=== PATIENT | female | born 1995 | race American Indian/Alaskan Native ===

== ENCOUNTER 2021-09-05 15:08 | Emergency (ER) | payer SELFPAY ==
[2021-09-05] MEDS ORDERED: ONDANSETRON 4 MG/2 ML INJ IV ONE (15:47)
[2021-09-05] MEDS ORDERED: SODIUM CHLORIDE 0.9% 1000 ML 1,000 ML IV ONE ×2 (15:48→18:48)
[2021-09-05] MEDS ORDERED: LORazepam 2 MG/ML VIAL IV ONE (15:48)
--- NOTE | 2021-09-05 15:53 | Emergency Department Report ---
ED Chest Pain HPI - General Chief Complaint: Chest Pain Stated Complaint: CHEST PAIN/CHILLS/VOMITING ABD PAIN Time Seen by Provider: 09/05/21 15:36 Source: patient Mode of arrival: Ambulatory Limitations: No Limitations - History of Present Illness Initial Comments: 26-year-old female presents with chest pain that has been going on for the last 3 days associated with nausea and vomiting progressively getting worse. Patient reported that she has not been able to tolerate any p.o. fluid or meal. She reported that whenever she tried to eat or hydrate herself she vomited the food or drink. Patient reported that she had a baby 3 months ago and had chest pain and acid reflux that needed admission at that point. Patient denies any fever or chills. No recent cold symptoms reported. Patient also denies any urinary frequency or urgency but was treated for urinary tract infection about 4 months ago. No other modifying or positive factors reported. Severity scale (0 -10): 10 - Related Data Previous Rx's Medication Instructions Recorded Last Taken Type Ondansetron (Nf) [Zofran TAB] 8 mg PO Q8HR PRN 5 Days #14 tablet 09/05/21 Unknown Rx cephALEXin [Keflex] 500 mg PO Q12HR 10 Days #20 cap 09/05/21 Unknown Rx Allergies Allergy/AdvReac Type Severity Reaction Status Date / Time No Known Allergies Allergy Unverified 04/14/14 09:02 Heart Score - HEART Score History: Slightly suspicious EKG: Normal Age: < 45 Risk factors: No known risk factors Troponin: < normal limit HEART Score: 0 - EKG Read Time Time EKG Completed: 03:35 EKG Read Time: 03:35 - Critical Actions Critical Actions: 0-3 pts:0.9-1.7%risk of adverse cardiac event.Candidate for discharge ED Review of Systems ROS: Stated complaint: CHEST PAIN/CHILLS/VOMITING ABD PAIN Other details as noted in HPI Comment: All other systems reviewed and negative Cardiovascular: chest pain Gastrointestinal: nausea, vomiting. denies: abdominal pain, diarrhea Genitourinary: denies: urgency, dysuria, frequency ED Past Medical Hx - Social History Smoking Status: Never Smoker - Medications Home Medications: Home Medications Medication Instructions Recorded Confirmed Last Taken Type Ondansetron (Nf) [Zofran TAB] 8 mg PO Q8HR PRN 5 Days #14 tablet 09/05/21 Unknown Rx cephALEXin [Keflex] 500 mg PO Q12HR 10 Days #20 cap 09/05/21 Unknown Rx ED Physical Exam - General Limitations: No Limitations General appearance: alert, in no apparent distress - Head Head exam: Present: normal inspection - Eye Eye exam: Present: normal appearance - ENT ENT exam: Present: normal exam, normal orophraynx, mucous membranes moist - Neck Neck exam: Present: normal inspection, full ROM. Absent: tenderness - Respiratory Respiratory exam: Present: normal lung sounds bilaterally, chest wall tenderness (Anterior chest wall tenderness to palpation). Absent: respiratory distress, wheezes - Cardiovascular Cardiovascular Exam: Present: regular rate, tachycardia, normal heart sounds - GI/Abdominal GI/Abdominal exam: Present: soft, normal bowel sounds. Absent: tenderness, guarding, rebound - Extremities Exam Extremities exam: Present: normal inspection, full ROM, normal capillary refill. Absent: tenderness, pedal edema - Back Exam Back exam: Present: normal inspection. Absent: CVA tenderness (R), CVA tenderness (L) - Neurological Exam Neurological exam: Present: alert - Psychiatric Psychiatric exam: Present: normal affect, normal mood - Skin Skin exam: Present: warm, normal color. Absent: rash ED Course Vital Signs 09/05/21 09/05/21 09/05/21 15:27 15:42 15:45 Temperature 100.7 F H Pulse Rate 135 H Respiratory 20 Rate Blood Pressure Blood Pressure 117/69 [Right] O2 Sat by Pulse 96 94 100 Oximetry 09/05/21 09/05/21 09/05/21 15:50 16:00 16:16 Temperature Pulse Rate 118 H 116 H 117 H Respiratory 28 H 13 Rate Blood Pressure Blood Pressure [Right] O2 Sat by Pulse 98 81 L Oximetry 09/05/21 09/05/21 09/05/21 16:30 16:46 17:00 Temperature Pulse Rate 114 H 110 H 110 H Respiratory 27 H 30 H 30 H Rate Blood Pressure Blood Pressure [Right] O2 Sat by Pulse 97 94 77 L Oximetry 09/05/21 09/05/21 09/05/21 17:16 17:30 17:46 Temperature Pulse Rate 108 H 105 H 108 H Respiratory 27 H 28 H 25 H Rate Blood Pressure Blood Pressure [Right] O2 Sat by Pulse 95 97 94 Oximetry 09/05/21 09/05/21 09/05/21 18:00 18:16 18:30 Temperature Pulse Rate 102 H 107 H 108 H Respiratory 24 30 H 30 H Rate Blood Pressure 120/70 122/74 Blood Pressure [Right] O2 Sat by Pulse 95 97 96 Oximetry 09/05/21 09/05/21 09/05/21 19:00 19:30 20:00 Temperature 103.1 F H Pulse Rate 114 H 129 H 118 H Respiratory 20 24 30 H Rate Blood Pressure 115/79 151/116 Blood Pressure 131/87 [Right] O2 Sat by Pulse 97 97 100 Oximetry 09/05/21 09/05/21 21:00 22:00 Temperature 99.1 F Pulse Rate 107 H 99 H Respiratory 25 H 27 H Rate Blood Pressure 106/56 105/59 Blood Pressure [Right] O2 Sat by Pulse 97 98 Oximetry - Reevaluation(s) Reevaluation #1: 09/05/21 15:54 Patient here with chest pain for 3 days associated with nausea and vomiting and noted with chest wall tenderness to palpation with sinus tachycardia on EKG--the symptoms is concerning for recent viral syndrome--versus reported nausea and vomiting with electrolyte and fluid loss--so we will go ahead and order routine labs including CBC, CMP, and urinalysis and hydrate patient with IV fluid normal saline 1 L bolus x1, Zofran 4 mg and aspirin for pain. We will also give Ativan to help anxiety. 09/05/21 15:58 Reevaluation #2: 09/05/21 17:14 Noted with mild hyponatremia and hypokalemia which is likely as a result of the nausea and vomiting--we will continue hydration with IV fluids Reevaluation #3: 09/05/21 17:45 Patient reports feeling a little bit better after IV hydration and something for nausea but noted with elevated white cell which likely could be reactive from extensive vomiting--no antibiotics is needed at this point we will just go ahead and treat symptomatically. Reevaluation #4: 09/05/21 18:51 Patient report feeling a little better after the initial IV hydration however she was noted with elevated white count and lots of large urinary leukocytes and lots of urine white cells so we will go ahead and treat for urinary tract infection by given Rocephin 1 g IV x1 and add additional 1 L of IV fluids normal saline. Patient also mentioned that she has been using lot of Azo o [id number] to help with the urinary symptoms. 09/05/21 18:52 09/05/21 22:07 Patient reports feeling a lot better after the second liter of IV fluids and antibiotics is completed ready to go home--we will discharge patient home on Keflex and Zofran for nausea with close follow-up with her primary doctor in the next 3 to 5 days. CHUCK score - Chuck Score Age > 65: (0) No Aspirin use within the Past 7 Days: (0) No 3 or more CAD Risk Factors: (0) No 2 or more Angina events in past 24 hrs: (0) No Known CAD with more than 50% Stenosis: (0) No Elevated Cardiac Markers: (0) No ST Deviation Greater than 0.5mm: (0) No CHUCK Score: 0 ED Medical Decision Making - Lab Data Result diagrams: 09/05/21 16:29 09/05/21 16:29 - Differential Diagnosis Anxiety, costochondritis, viral syndrome, heart attack Critical care attestation.: If time is entered above; I have spent that time in minutes in the direct care of this critically ill patient, excluding procedure time. ED Disposition Clinical Impression: Anxiety, Dehydration Chest pain Qualifiers: Chest pain type: intercostal pain Qualified Code(s): R07.82 - Intercostal pain Nausea and vomiting Qualifiers: Vomiting type: unspecified Qualified Code(s): R11.2 - Nausea with vomiting, unspecified Urinary tract infection Qualifiers: Urinary tract infection type: site unspecified Hematuria presence: without hematuria Qualified Code(s): N39.0 - Urinary tract infection, site not specified Disposition: 01 HOME / SELF CARE / HOMELESS Is pt being admited?: No Does the pt Need Aspirin: No Condition: Stable Instructions: Antibiotic Medicine, Adult, [id number], Nonspecific Chest Pain, Adult, Nausea and Vomiting, Adult, [id number], Urinary Tract Infection, Adult, Llvq-ri-Kcyv, Dehydration, Adult, [id number]-[id number] Additional Instructions: Increase your daily fluid to help your hydration Take and complete your antibiotics as prescribed to help your symptoms : Follow-up with your primary doctor in the next 3 to 5 days for progress Please do not hesitate to call or return to emergency room if your symptoms worsen Prescriptions: cephALEXin [Keflex] 500 mg PO Q12HR 10 Days #20 cap Ondansetron (Nf) [Zofran TAB] 8 mg PO Q8HR PRN 5 Days #14 tablet PRN Reason: Nausea Referrals: SALVATORE RIOS MD [Primary Care Provider] - 3-5 Days Time of Disposition: 23:06
[2021-09-05] MEDS ORDERED: ASPIRIN 81 MG TAB CHEW PO ONE (15:59)
[2021-09-05 16:07] LABS: HCG Qualitative,Urine Negative (Negative)
[2021-09-05 16:14] LABS: Bilirubin,Urine NEG (Negative); Blood,Urine SM (Negative); Color,Urine Amber (Yellow); Mucus,Urine 2+ /HPF
[2021-09-05 16:15] LABS: Protein,Urine >500 mg/dL (Negative); WBC,Urine > 182.0 /HPF (0.0-6.0)
--- NOTE | 2021-09-05 16:50 | XRay Report ---
CHEST 1 VIEW 09/05/2021 4:27 PM INDICATION / CLINICAL INFORMATION: chest pain. COMPARISON: None available. FINDINGS: SUPPORT DEVICES: None. HEART / MEDIASTINUM: No significant abnormality. LUNGS / PLEURA: No significant pulmonary or pleural abnormality. Round opacity at the right costophre jb angle favors nipple shadow. No pneumothorax. ADDITIONAL FINDINGS: No significant additional findings. IMPRESSION: 1. No acute findings. Signer Name: Miguelito Quick MD Signed: 09/05/2021 4:46 PM Workstation Name: [id number]
[2021-09-05 16:51] LABS: Hematocrit 35.6 % (30.3-42.9); Hemoglobin 11.5 gm/dl (10.1-14.3); Mean Corpuscular HGB Conc 32 % (30-34); Mean Corpuscular Volume 85 fl (79-97); Platelet Count 250 K/mm3 (140-440); Red Blood Count 4.19 M/mm3 (3.65-5.03); Red Cell Distribution Width 14.8 % (13.2-15.2)
[2021-09-05 17:01] LABS: INR 1.11 (0.87-1.13)
[2021-09-05 17:02] LABS: Partial Thromboplastin Time 38.4 Sec. (24.2-36.6)
[2021-09-05 17:11] LABS: Alanine Aminotransferase 14 units/L (7-56); Albumin 3.7 g/dL (3.9-5); BUN/Creatinine Ratio 24; Blood Urea Nitrogen 22 mg/dL (7-17); Calcium 8.7 mg/dL (8.4-10.2); Hemolysis Index 4
[2021-09-05 17:21] LABS: Band Neutrophils # (Manual) 0.4 K/mm3; Basophils % (Manual) 0 % (0.0-1.8); Eosinophils % (Manual) 0 % (0.0-4.3); Total Cells Counted 100
[2021-09-05 17:22] LABS: Anisocytosis 1+; Large Platelets Few; Platelet Estimate Consistent w Auto; Toxic Granulation 3+; Toxic Vacuolation 1+
[2021-09-05] MEDS ORDERED: cefTRIAXone/NS 1 GM/50 ML 1 GM/50 ML BAG IV ONE (18:49)
[2021-09-05] MEDS ORDERED: KETOROLAC 30 MG/1 ML INJ IV ONE (19:48)
[2021-09-05 22:59] VITALS: BP 105/59
--- NOTE | 2021-09-06 10:25 | Electrocardiograph Report ---
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
== END 2021-09-05 22:27 | disposition home or self-care (01) ==
LOC: ED 15:08
DX: N39.0 Urinary tract infection, site not specified (principal); R07.9 Chest pain, unspecified; F41.8 Other specified anxiety disorders; R11.2 Nausea with vomiting, unspecified
CPT/HCPCS: 36415; 71045; 80053; 81001; 81025; 83690; 83880; 84443; 85007; 85025; 85610; 85730; 93005; 96361; 96365; 96375; 99284; J0696; J1885; J2060; J2405; J7030; Q0162

== ENCOUNTER 2022-02-19 16:03 | Emergency (ER) | payer OTHER ==
[2022-02-19] MEDS ORDERED: ACETAMINOPHEN 500 MG TAB PO ONE (20:31)
[2022-02-19 20:42] LABS: Mean Corpuscular HGB Conc 31 % (30-34); Mean Corpuscular Volume 82 fl (79-97); Platelet Count 272 K/mm3 (140-440); Red Blood Count 4.78 M/mm3 (3.65-5.03); Red Cell Distribution Width 18.7 % (13.2-15.2)
[2022-02-19 21:03] LABS: Bilirubin,Urine NEG (Negative); Blood,Urine MOD (Negative); Color,Urine Amber (Yellow)
[2022-02-19 21:12] LABS: Mucus,Urine 3+ /HPF
[2022-02-19] MEDS ORDERED: ONDANSETRON 4 MG/2 ML INJ IV ONE (21:13)
[2022-02-19] MEDS ORDERED: KETOROLAC 30 MG/1 ML INJ IV ONE (21:13)
[2022-02-19] MEDS ORDERED: SODIUM CHLORIDE 0.9% 1000 ML 1,000 ML IV ONE ×2 (21:15→22:46)
[2022-02-19] MEDS ORDERED: cefTRIAXone/NS 1 GM/50 ML 1 GM/50 ML BAG IV ONE (21:18)
[2022-02-19 21:19] LABS: HCG Qualitative,Urine Negative (Negative)
[2022-02-19 21:24] LABS: WBC,Urine > 182.0 /HPF (0.0-6.0)
--- NOTE | 2022-02-19 21:24 | Emergency Department Report ---
ED Fever HPI - General Chief Complaint: Fever Stated Complaint: CHEST PAIN/FEVER/CHILLS - History of Present Illness Initial Comments: 26-year-old female with history of recurrent kidney infections presents complaining of fever, chills, chest pain, headache, lower abdominal pain, nausea and vomiting since yesterday. The lower abdominal pain is described as a sharp and severe. The pain radiates to bilateral flanks and lower back. Patient denies cough, congestion, shortness of breath, or any other symptoms. Denies abnormal vaginal discharge, nor concern for having an STI. Patient states that she has not been able to take any medication for the pain or fever as she has been throwing up. Patient reports similar in the past, but states that this is more severe. Patient has been diagnosed with urosepsis, once, while she was . Patient denies being now. No aggravating or alleviating factors. ED Review of Systems ROS: Stated complaint: CHEST PAIN/FEVER/CHILLS Other details as noted in HPI Comment: All other systems reviewed and negative Constitutional: chills, fever, malaise, weakness. denies: diaphoresis Eyes: denies: eye pain, eye discharge, vision change ENT: congestion. denies: ear pain, throat pain Respiratory: denies: cough, shortness of breath, wheezing Cardiovascular: chest pain. denies: palpitations Endocrine: no symptoms reported Gastrointestinal: abdominal pain, nausea, vomiting. denies: diarrhea Genitourinary: denies: urgency, dysuria, discharge Musculoskeletal: back pain. denies: joint swelling, arthralgia Skin: denies: rash, lesions Neurological: headache, weakness. denies: paresthesias Psychiatric: denies: anxiety, depression Hematological/Lymphatic: denies: easy bleeding, easy bruising ED Past Medical Hx - Past Medical History Previous Medical History?: Yes Additional medical history: Frequent UTI, Vaginal delivery x 1 - Surgical History Past Surgical History?: Yes Additional Surgical History: RT breast, x 1 - Social History Smoking Status: Never Smoker - Medications Home Medications: Home Medications Medication Instructions Recorded Confirmed Last Taken Type Ondansetron (Nf) [Zofran TAB] 8 mg PO Q8HR PRN 5 Days #14 tablet 09/05/21 Unknown Rx cephALEXin [Keflex] 500 mg PO Q12HR 10 Days #20 cap 09/05/21 Unknown Rx Cefpodoxime Proxetil 200 mg PO Q12H #20 02/20/22 Unknown Rx HYDROcodone/APAP 5-325 [[place] 1 each PO Q6HR PRN #10 tablet 02/20/22 Unknown Rx 5/325] Ibuprofen [Motrin] 400 mg PO Q8H PRN #28 tablet 02/20/22 Unknown Rx Ondansetron [Zofran Odt] 4 mg PO Q8HR PRN #6 tab.rapdis 02/20/22 Unknown Rx ED Physical Exam - General Limitations: No Limitations General appearance: alert, in no apparent distress - Head Head exam: Present: atraumatic, normocephalic - Eye Eye exam: Present: normal appearance, PERRL, EOMI - ENT ENT exam: Present: mucous membranes moist - Neck Neck exam: Present: normal inspection. Absent: tenderness, meningismus - Respiratory Respiratory exam: Present: normal lung sounds bilaterally. Absent: respiratory distress, wheezes, rales - Cardiovascular Cardiovascular Exam: Present: regular rate, normal rhythm, tachycardia, normal heart sounds. Absent: systolic murmur, diastolic murmur, rubs, gallop - GI/Abdominal GI/Abdominal exam: Present: soft, tenderness (Suprapubic), normal bowel sounds, other (Bilateral CVA tenderness). Absent: rebound, pulsatile mass - Extremities Exam Extremities exam: Present: normal inspection - Back Exam Back exam: Present: normal inspection, full ROM, CVA tenderness (R), CVA tenderness (L) - Neurological Exam Neurological exam: Present: alert, oriented X3, CN II-XII intact, normal gait - Psychiatric Psychiatric exam: Present: normal affect, normal mood - Skin Skin exam: Present: warm, dry, intact, normal color. Absent: rash ED Course Vital Signs 02/19/22 02/20/22 17:25 00:35 Temperature 102.6 F H 98.6 F Pulse Rate 139 H 92 H Respiratory 20 14 Rate Blood Pressure 141/72 111/63 [Right] O2 Sat by Pulse 99 96 Oximetry - Reevaluation(s) Reevaluation #1: 02/19/22 22:44 Patient reports resolution of nausea, and was able to tolerate p.o. Awaiting chemistry and CT abdomen pelvis. Reevaluation #2: 02/20/22 00:45 Patient has had resolution of her symptoms, and is requesting to be discharged home. Still awaiting lactic acid. If lactate is elevated, patient will be admitted. If it is normal, patient will be discharged home with antibiotics. ED Medical Decision Making - Lab Data Result diagrams: 02/19/22 18:37 02/19/22 22:18 - Radiology Data Radiology results: report reviewed Chest x-ray: IMPRESSION: 1. No acute abnormality of the chest. Signer Name: Bo Franklin MD ct abd/pelvis with contrast: IMPRESSION: 1. Acute right-sided pyelonephritis secondary to an ascending urinary tract infection and evidence for cystitis. Minimal right hydronephrosis without obstructing mass or stone. 2. Asymmetric right renal cortical scarring, likely secondary to more remote pyelonephritis. 3. Normal appendix. Signer Name: Richard Aquino MD - Medical Decision Making This is a 26-year-old female with a history of recurrent UTIs and kidney infections who presents to the emergency department with multiple complaints including fever since yesterday. Patient complains of chest pain, lower abdominal pain, and bilateral flank pain and vomiting. Vital signs are concerni ng for a fever of 102.6 and tachycardia of 139. Physical exam is remarkable for uncomfortable appearing patient with tachycardia and bilateral flank tenderness. These complaints, vital signs, and physical exam places sepsis due to ascending UTI as the diagnosis that is most high on the differential. Patient's white cell count is elevated at 18.8. Patient's urine is positive for large leuk esterase and greater than 183 white cell count. Lab work is otherwise unremarkable. Chest x-ray is normal. CT scan showed acute pyelonephritis, and scarring from previous pyelonephritis. Patient was given IV ceftriaxone, Zofran, morphine, 2 L normal saline, p.o. Tylenol., Patient had complete resolution of symptoms, and improvement of vital signs and requested to be discharged home. Patient endorsed understanding of her diagnosis, agreed to finish her complete antibiotic dosing, and will listen out for further need to change antibiotics. Additionally, patient will follow-up with her interactive media project manager or urologist to do more studies to figure out why she recurrently has pyelonephritis. Critical care attestation.: If time is entered above; I have spent that time in minutes in the direct care of this critically ill patient, excluding procedure time. ED Disposition Clinical Impression: Pyelonephritis, Fever Disposition: HOME / SELF CARE / HOMELESS Is pt being admited?: No Condition: Stable Instructions: Pyelonephritis, Adult, [id number], Antibiotic Medicine, Adult Additional Instructions: Please do the following to increase your chances of healin. Drink plenty of clear fluids such as 60 ounces of water, daily. 2. Urinate frequently, and do not hold your urine. 3. Drink fruit juices such as orange juice and real lemonade. 4. After sex, it is important to urinate. On Monday, please call your closest [facility] and/or your interactive media project manager to further evaluate your frequent, recurrent urinary tract infections. Prescriptions: Cefpodoxime Proxetil 200 mg PO Q12H #20 Ibuprofen [Motrin] 400 mg PO Q8H PRN #28 tablet PRN Reason: Fever >101 HYDROcodone/APAP 5-325 [[place] 5/325] 1 each PO Q6HR PRN #10 tablet PRN Reason: Pain Ondansetron [Zofran Odt] 4 mg PO Q8HR PRN #6 tab.rapdis PRN Reason: Nausea Referrals: SALVATORE RIOS MD [Primary Care Provider] - 3-5 Days Forms: Work/School Release Form(ED) Time of Disposition: 01:33
--- NOTE | 2022-02-19 21:48 | XRay Report ---
CHEST 1 VIEW 02/19/2022 8:40 PM INDICATION / CLINICAL INFORMATION: fever r/o pneumonia. COMPARISON: None available. FINDINGS: SUPPORT DEVICES: None. HEART / MEDIASTINUM: No significant abnormality. LUNGS / PLEURA: No significant pulmonary abnormality. No significant pleural effusion. No pneumothora x. ADDITIONAL FINDINGS: No significant additional findings. IMPRESSION: 1. No acute abnormality of the chest. Signer Name: Bo Franklin MD Signed: 02/19/2022 9:44 PM Workstation Name: [email or web address]
[2022-02-19 22:08] LABS: Anisocytosis 1+; Basophils % (Manual) 0 % (0.0-1.8); Eosinophils % (Manual) 0 % (0.0-4.3); Total Cells Counted 100
[2022-02-19 22:10] LABS: Hypochromasia 1+; Large Platelets Few; Platelet Estimate Consistent w Auto
[2022-02-19] MEDS ORDERED: MORPHINE 2 MG/1 ML INJ IV ONE (22:45)
[2022-02-19 22:57] LABS: Alanine Aminotransferase 7 units/L (7-56); Albumin 3.7 g/dL (3.9-5); Blood Urea Nitrogen 10 mg/dL (7-17); Calcium 8.3 mg/dL (8.4-10.2); Hemolysis Index 46
[2022-02-19 23:07] LABS: BUN/Creatinine Ratio 20
[2022-02-19] MEDS ORDERED: SODIUM CHLORIDE IRRI 500 ML 500 ML IR ONE (23:12)
--- NOTE | 2022-02-20 00:04 | Cat Scan Report ---
CT ABDOMEN AND PELVIS WITH CONTRAST INDICATION / CLINICAL INFORMATION: abdominal pain fever r/o appendicitis. TECHNIQUE: Axial CT images were obtained through the abdomen and pelvis after IV contrast. All CT sc ans at this location are performed using CT dose reduction for ALARA by means of automated exposure c ontrol. COMPARISON: None available. FINDINGS: LOWER CHEST: No significant abnormality. LIVER: No significant abnormality. GALLBLADDER/BILIARY: No significant abnormality or evidence for biliary obstruction. PANCREAS: No significant abnormality. SPLEEN: No significant abnormality. ADRENALS: No significant abnormality. KIDNEYS/URETERS: Patchy right renal hypoenhancement, most notable within the lower pole and anterior cortex, concerning for acute pyelonephritis. There is also right renal cortical scarring, likely seco ndary to remote pyelonephritis. Mild right perinephric edema. Right ureteral urothelial enhancement a nd minimal right-sided hydronephrosis without obstructing stone or mass. Normal left renal enhancemen t without evidence for left-sided pyelonephritis. GI: No acute bowel inflammation, obstruction or evidence for ischemia. APPENDIX: No significant abnormality. PERITONEUM: No pneumoperitoneum, free peritoneal fluid or loculated fluid collection. LYMPH NODES: No significant adenopathy. AORTA / ARTERIES: No significant abnormality. URINARY BLADDER: Diffuse wall thickening consistent with cystitis. REPRODUCTIVE ORGANS: No significant abnormality. SKELETAL SYSTEM: No acute or destructive osseous process. ADDITIONAL FINDINGS: Small umbilical hernia with a small bowel loop extending slightly into the tiny hernia sac. No associated obstruction. IMPRESSION: 1. Acute right-sided pyelonephritis secondary to an ascending urinary tract infection and evidence fo r cystitis. Minimal right hydronephrosis without obstructing mass or stone. 2. Asymmetric right renal cortical scarring, likely secondary to more remote pyelonephritis. 3. Normal appendix. Signer Name: Richard Aquino MD Signed: 02/19/2022 11:59 PM Workstation Name: [email or web address]
[2022-02-20 00:36] VITALS: BP 111/63
== END 2022-02-20 01:49 | disposition home or self-care (01) ==
LOC: ED 16:03
DX: N12 Tubulo-interstitial nephritis, not specified as acute or chronic (principal); R50.9 Fever, unspecified
CPT/HCPCS: 36415; 71045; 74177; 80053; 81001; 81025; 82140; 85007; 85025; 87040; 87086; 96365; 96375; 99284; J0696; J1885; J2270; J2405; Q9967